=== PATIENT | male | born 1965 | race African-American/Black ===

== ENCOUNTER 2024-12-27 22:36 | Inpatient (IN) | payer SELFPAY ==
[~2024-12-27] VITALS: Ht 175.3 cm; Wt 112.5 kg
[2024-12-27 23:44] LABS: BASOPHILS % 0.8 % (0.0-1.0); EOSINOPHILS % 0.4 % (0.0-6.0); LYMPHOCYTES % 19.2 % (18.0-39.1); MONOCYTES % 14.4 % (4.4-11.3); NEUTROPHILS % 65.0 % (38.7-80.0); RED CELL DISTRIBUTION WIDTH 15.1 % (11.7-14.4)
[2024-12-27] MEDS: DIPHENHYDRAMINE HCL INJ 50 MG/ML VIAL IV ONE (23:46)
[2024-12-27] MEDS: SODIUM CHLORIDE 0.9% 1000ML 1,000 ML IV ONE (23:46)
[2024-12-27] MEDS: METOCLOPRAMIDE HCL 10 MG/2ML VIAL IV ONE (23:49)
[2024-12-28] VITALS (12 sets, daily range): BP systolic 123–161; BP diastolic 61–76; PULSE 93–108; RESP 16–21; TEMP 97.7–98.6; O2SAT 98–100
[2024-12-28 00:06] LABS: EST GLOMERULAR FILTRATION RATE 62.0 ML/MIN (>=60)
[2024-12-28] MEDS: ACETAMINOPHEN 1000 MG/100 ML IV STA (00:35)
[2024-12-28] MEDS: SODIUM CHLORIDE 0.9% 1000ML 1,000 ML IV ONE (01:30)
[2024-12-28] MEDS ORDERED: DEXTROSE 50% SYRINGE 50 ML IV PRN (02:30)
[2024-12-28] MEDS: SODIUM CHLORIDE 0.9% 1000ML 1,000 ML IV SCH (03:16)
[2024-12-28] MEDS: ONDANSETRON HCL INJ 2MG/ML 2ML 2 MG/ML VIAL IV PRN (03:17)
[2024-12-28] MEDS: METOCLOPRAMIDE HCL 10 MG/2ML VIAL IV SCH (05:34)
[2024-12-28] MEDS: INSULIN REGULAR, HUMAN 100 UNIT/1 ML SQ SCH (07:30)
[2024-12-28] MEDS ORDERED: METHOCARBAMOL750 MG PO (07:45)
[2024-12-28] MEDS ORDERED: ATORVASTATIN CA40 MG PO (07:45)
[2024-12-28] MEDS ORDERED: METOCLOPRAMIDE10 MG PO (07:45)
[2024-12-28] MEDS ORDERED: PANTOPRAZOLE SO40 MG PO (07:45)
[2024-12-28] MEDS ORDERED: DICYCLOMINE HCL20 MG PO (07:45)
[2024-12-28] MEDS ORDERED: JARDIANCE10 MG PO (07:45)
[2024-12-28] MEDS ORDERED: BISACODYL 10 MG SUPP PR ONE (09:15)
[2024-12-28] MEDS: ACETAMINOPHEN/CODEINE 300MG - 30MG TAB PO PRN (12:05)
[2024-12-28] MEDS ORDERED: TRAMADOL HCL 50 MG TAB PO PRN (12:45)
[2024-12-28] MEDS ORDERED: Morphine 2mg Syringe 2 MG/ML SYR IV PRN (17:00)
[2024-12-28] MEDS: KETOROLAC TROMETHAMINE 30 MG/ML VIAL IV PRN (20:35)
[2024-12-28] MEDS: ATORVASTATIN 40 MG TAB PO SCH (20:42)
[2024-12-28] MEDS ORDERED: LORAZEPAM INJ 2 MG/ML VIAL IV PRN (21:45)
[2024-12-28] MEDS: ONDANSETRON HCL INJ 2MG/ML 2ML 2 MG/ML VIAL IV STA (22:17)
[2024-12-28 23:34] LABS: LEUKOCYTE ESTERASE ,URINE NEGATIVE (NEGATIVE); PROTEIN,URINE DIPSTICK NEGATIVE (NEGATIVE); URINE UROBILINOGEN 1 mg/dL (0.2 - 1)
[2024-12-28] MEDS ORDERED: NEURONTIN300 MG PO (23:35)
[2024-12-28] MEDS ORDERED: NIFEDIPINE ER30 M1 PO (23:35)
[2024-12-28] MEDS ORDERED: TOPIRAMATE25 MG PO (23:36)
[2024-12-28 23:57] LABS: WBC,URINE (MAN) >50 /HPF (0-5)
[2024-12-28 23:58] LABS: EPITHELIAL CELLS,URINE FEW /LPF
[2024-12-29] VITALS (8 sets, daily range): BP systolic 148–171; BP diastolic 68–77; PULSE 70–101; RESP 12–20; TEMP 97.9–98.6; O2SAT 99–100
[2024-12-29] MEDS: ONDANSETRON HCL INJ 2MG/ML 2ML 2 MG/ML VIAL IV SCH (06:10)
[2024-12-29] MEDS ORDERED: PANTOPRAZOLE SOD 40 MG TABEC PO SCH (07:30)
[2024-12-29 08:51] LABS: BASOPHILS % 1.0 % (0.0-1.0); EOSINOPHILS % 0.5 % (0.0-6.0); LYMPHOCYTES % 26.1 % (18.0-39.1); MONOCYTES % 11.0 % (4.4-11.3); NEUTROPHILS % 61.1 % (38.7-80.0); RED CELL DISTRIBUTION WIDTH 15.1 % (11.7-14.4)
[2024-12-29] MEDS: METHOCARBAMOL 750 MG TAB PO SCH (09:04)
[2024-12-29] MEDS: DICYCLOMINE HCL 10 MG CAP PO SCH (09:04)
[2024-12-29 09:09] LABS: EST GLOMERULAR FILTRATION RATE 83.0 ML/MIN (>=60)
[2024-12-30] VITALS (8 sets, daily range): BP systolic 142–164; BP diastolic 66–73; PULSE 90–98; RESP 18–20; TEMP 98–98.8; O2SAT 96–100
[2024-12-30] MEDS ORDERED: ONDANSETRON HCL INJ 2MG/ML 2ML 2 MG/ML VIAL IV PRN (05:00)
[2024-12-30 06:11] LABS: CHOL/HDL RATIO 4.2 (3.9-4.7); LDL CHOLESTEROL 76.0 MG/DL (60-130)
[2024-12-30 08:03] LABS: LEUKOCYTE ESTERASE ,URINE NEGATIVE (NEGATIVE)
[2024-12-30 08:04] LABS: PROTEIN,URINE DIPSTICK NEGATIVE (NEGATIVE); URINE UROBILINOGEN 1 mg/dL (0.2 - 1)
[2024-12-30 08:07] LABS: EPITHELIAL CELLS,URINE FEW /LPF; WBC,URINE (MAN) 0-5 /HPF (0-5)
[2024-12-30] MEDS: NIFEDIPINE CR 30 MG TAB PO SCH (09:45)
[2024-12-30] MEDS ORDERED: IOPAMIDOL 370 MG/ML 100 ML INFUS..BTL INJ ONE (16:10)
[2024-12-30] MEDS: SUCRALFATE 1 GM/10 ML SUSP PO SCH (17:14)
[2024-12-30] MEDS: LORAZEPAM INJ 2 MG/ML VIAL IV STA (21:29)
[2024-12-30] MEDS ORDERED: LORAZEPAM INJ 2 MG/ML VIAL IV SCH (21:30)
[2024-12-31] VITALS (10 sets, daily range): BP systolic 128–162; BP diastolic 61–87; PULSE 78–104; RESP 16–18; TEMP 97.7–99.4; O2SAT 96–100
[2024-12-31 05:33] LABS: BASOPHILS % 0.7 % (0.0-1.0); EOSINOPHILS % 1.3 % (0.0-6.0); LYMPHOCYTES % 20.6 % (18.0-39.1); MONOCYTES % 12.2 % (4.4-11.3); NEUTROPHILS % 65.0 % (38.7-80.0); RED CELL DISTRIBUTION WIDTH 14.7 % (11.7-14.4)
[2024-12-31 06:14] LABS: EST GLOMERULAR FILTRATION RATE 85.0 ML/MIN (>=60)
[2024-12-31] MEDS: LORAZEPAM INJ 2 MG/ML VIAL IV SCH (09:14)
[2024-12-31] MEDS ORDERED: PROPOFOL IV EMULSION 10 MG/ML 20 ML VIAL ONE (15:53)
[2024-12-31] MEDS ORDERED: LIDOCAINE HCL 2% LOCAL INJ 5 ML SDV VIAL INJ ONE (15:53)
[2024-12-31] MEDS ORDERED: FENTANYL CITRATE/PF 100MCG/2 ML INJ ONE (15:53)
[2024-12-31] MEDS ORDERED: HYDRALAZINE HCL 10 MG TAB PO PRN (16:45)
[2025-01-01] VITALS (8 sets, daily range): BP systolic 111–142; BP diastolic 56–71; PULSE 90–103; RESP 16–20; TEMP 98–98.6; O2SAT 100
[2025-01-01] MEDS: METOPROLOL SUCCINATE 25 MG TAB XL PO SCH (08:04)
[2025-01-01] MEDS: NIFEDIPINE CR 30 MG TAB PO SCH (08:04)
[2025-01-01] MEDS: MECLIZINE HCL 12.5 MG TAB PO SCH (15:00)
[2025-01-01] MEDS: MECLIZINE HCL 12.5 MG TAB PO ONE (15:20)
[2025-01-01] MEDS: ONDANSETRON HCL INJ 2MG/ML 2ML 2 MG/ML VIAL IV SCH (15:20)
[2025-01-01] MEDS: METOCLOPRAMIDE HCL 10 MG/2ML VIAL IV ONE (21:36)
[2025-01-02] VITALS (9 sets, daily range): BP systolic 121–156; BP diastolic 63–74; PULSE 87–102; RESP 18–20; TEMP 97.7–98.7; O2SAT 98–100
[2025-01-02] MEDS: METOCLOPRAMIDE HCL 10 MG/2ML VIAL IV SCH (01:28)
[2025-01-02] MEDS ORDERED: SODIUM CHLORIDE 0.9% IV SCH (07:30)
[2025-01-02] MEDS ORDERED: ERYTHROMYCIN LACTOBIONATE IV SCH (07:30)
[2025-01-02] MEDS: ERYTHROMYCIN 250 MG TAB PO SCH (10:29)
[2025-01-02] MEDS: INSULIN GLARGINE 100 UNITS/ML VIAL SQ ONE (10:31)
[2025-01-03 03:13] VITALS: BP 139/62; PULSE 96; RESP 18; TEMP 98.4; O2SAT 100
[2025-01-03 05:38] LABS: BASOPHILS % 0.9 % (0.0-1.0); EOSINOPHILS % 2.1 % (0.0-6.0); LYMPHOCYTES % 13.3 % (18.0-39.1); MONOCYTES % 7.1 % (4.4-11.3); NEUTROPHILS % 76.4 % (38.7-80.0); RED CELL DISTRIBUTION WIDTH 14.1 % (11.7-14.4)
[2025-01-03 06:09] LABS: EST GLOMERULAR FILTRATION RATE 92.0 ML/MIN (>=60)
[2025-01-03 08:06] VITALS: BP 156/71; PULSE 90; RESP 20; TEMP 98.6; O2SAT 99
[2025-01-03] MEDS: METOPROLOL SUCCINATE 50 MG TAB XL PO SCH (09:32)
[2025-01-03] MEDS: POTASSIUM CHLORIDE 20MEQ/100ML 100 ML IV ONE (10:32)
[2025-01-03] MEDS: POTASSIUM CHLORIDE 20 MEQ TAB CR PO ONE ×2 (10:55→12:27)
[2025-01-03 11:21] VITALS: BP 130/58; PULSE 98; TEMP 98.1; O2SAT 100
[2025-01-03] MEDS ORDERED: LORAZEPAM 0.5 MG TAB PO SCH (14:30)
[2025-01-03 16:12] VITALS: BP 113/50; PULSE 81; RESP 17; TEMP 98.6; O2SAT 100
[2025-01-03] MEDS: ONDANSETRON HCL 4 MG ORAL DISINTEGRATING TAB PO SCH (17:07)
[2025-01-03] MEDS: LORAZEPAM 0.5 MG TAB PO SCH (17:07)
[2025-01-03] MEDS: PANTOPRAZOLE SOD 40 MG TABEC PO SCH (17:10)
[2025-01-03 20:00] VITALS: BP 149/67; PULSE 89; RESP 18; TEMP 99; O2SAT 100
[2025-01-03 20:03] LABS: EST GLOMERULAR FILTRATION RATE 77.0 ML/MIN (>=60)
[2025-01-03 21:00] VITALS: BP 149/67; PULSE 89; RESP 18; TEMP 99; O2SAT 100
[2025-01-03] MEDS: INSULIN GLARGINE 100 UNITS/ML VIAL SQ SCH (21:07)
[2025-01-03] MEDS: POTASSIUM CHLORIDE 10MEQ EA PO STA (21:49)
[2025-01-04] VITALS: BP 140/71; PULSE 83; RESP 18; TEMP 99.3; O2SAT 100
[2025-01-04 04:00] VITALS: BP_SYST 102; BP_SYST 134; BP_DIAS 58; BP_DIAS 75; PULSE 61; PULSE 97; RESP 18; TEMP 99.2; O2SAT 100; O2SAT 98
[2025-01-04 07:30] VITALS: BP 134/58; PULSE 97; RESP 18; TEMP 99.2; O2SAT 100
[2025-01-04 08:00] VITALS: BP 132/71; PULSE 96; RESP 20; TEMP 98.1; O2SAT 100
[2025-01-04 08:21] VITALS: BP 134/58; PULSE 97
[2025-01-04] MEDS: POTASSIUM CHLORIDE 20 MEQ TAB CR PO STA (08:33)
== END 2025-01-04 08:39 | disposition home or self-care (01) | DRG 74 ==
LOC: ER 23:34 → ERHOLD 12-28 02:22 → MED/SURG 12-28 04:44 → OBSVTOIN 12-29 14:19
PROVIDERS: ADMIT Internal Medicine; ATTEND Internal Medicine
PROC: 0D778ZZ Dilation of Stomach, Pylorus, Via Natural or Artificial Opening Endoscopic (ICD-10-PCS; 2024-12-31)
PROC: 0DB68ZX Excision of Stomach, Via Natural or Artificial Opening Endoscopic, Diagnostic (ICD-10-PCS; principal; 2024-12-31 16:00)
PROC: 0DB78ZX Excision of Stomach, Pylorus, Via Natural or Artificial Opening Endoscopic, Diagnostic (ICD-10-PCS; 2024-12-31 16:00)
DX: E11.43 Type 2 diabetes mellitus with diabetic autonomic (poly)neuropathy (principal); K31.1 Adult hypertrophic pyloric stenosis; E87.1 Hypo-osmolality and hyponatremia; K31.84 Gastroparesis; E11.22 Type 2 diabetes mellitus with diabetic chronic kidney disease; I12.9 Hypertensive chronic kidney disease with stage 1 through stage 4 chronic kidney disease, or unspecified chronic kidney disease; E11.65 Type 2 diabetes mellitus with hyperglycemia; N18.30 Chronic kidney disease, stage 3 unspecified; E78.5 Hyperlipidemia, unspecified; I25.10 Atherosclerotic heart disease of native coronary artery without angina pectoris; E87.6 Hypokalemia; K21.9 Gastro-esophageal reflux disease without esophagitis; R35.0 Frequency of micturition; R00.0 Tachycardia, unspecified; R53.81 Other malaise; R79.89 Other specified abnormal findings of blood chemistry; M62.838 Other muscle spasm; K20.90 Esophagitis, unspecified without bleeding; K29.70 Gastritis, unspecified, without bleeding; R11.2 Nausea with vomiting, unspecified; M54.9 Dorsalgia, unspecified; Z79.84 Long term (current) use of oral hypoglycemic drugs; Z79.890 Hormone replacement therapy; Z95.5 Presence of coronary angioplasty implant and graft; Z90.49 Acquired absence of other specified parts of digestive tract; Z89.411 Acquired absence of right great toe; Z89.412 Acquired absence of left great toe
CPT/HCPCS: 36415; 43233; 43239; 74018; 74177; 80048; 80053; 80061; 81001; 82948; 83036; 83690; 83735; 84443; 84484; 85025; 87086; 87205; 88305; 93005; 94799; 96372; 99284; G0378; J1200; J1364; J1815; J1885; J2003; J2060; J2405; J2470; J2765; J3480; J7030; J7050; Q0162; Q9967